=== PATIENT | male | born 1975 | race African-American/Black ===

== ENCOUNTER 2020-05-31 10:44 | Emergency (ER) | payer OTHER ==
[~2020-05-31] VITALS: Ht 175.3 cm; Wt 90.7 kg
[2020-05-31] MEDS ORDERED: KETOROLAC TROMETHAMINE 30 MG/ML VIAL IV STA (11:57)
[2020-05-31] MEDS ORDERED: SODIUM CHLORIDE 0.9% 1000ML 1,000 ML IV SCH (12:00)
[2020-05-31] MEDS ORDERED: SODIUM CHLORIDE 0.9% 500ML 1,000 ML ONE (12:07)
[2020-05-31 12:35] LABS: BASOPHILS % 0.6 % (0.0-1.0); EOSINOPHILS # (AUTO) 0.1 (0.0-0.4); EOSINOPHILS % 1.1 % (0.0-6.0); HEMATOCRIT 39.9 % (38.2-49.6); LYMPHOCYTES # (AUTO) 1.2 (1.0-3.2); LYMPHOCYTES % 21.3 % (18.0-39.1); MEAN CORPUSCULAR HEMOGLOBIN 27.5 pg (28-32); MEAN CORPUSCULAR HGB CONC 32.6 g/dL (31-35); MEAN CORPUSCULAR VOLUME 84.4 fL (81-99); MONOCYTES # (AUTO) 0.9 (0.2-0.8); NEUTROPHILS # (AUTO) 3.3 (2.1-6.9); NEUTROPHILS % 60.4 % (38.7-80.0); PLATELET COUNT 255 x10e3/uL (140-360); RED BLOOD COUNT 4.73 x10e6/uL (4.3-5.7); RED CELL DISTRIBUTION WIDTH 13.3 % (11.7-14.4)
--- NOTE | 2020-05-31 13:00 | NUR ---
[facility] called for transport to CT
--- NOTE | 2020-05-31 14:11 | Emergency Department Note ---
History of Present Illnes History of Present Illness Chief Complaint: Abdominal Complaints History of Present Illness This is a 44 year old male bilateral low back pain. Onset of fever, chills, N, diarrhea (no vomiting), general malaise, generalized muscle aches 6 days ago. Had negative COVID test. Symptoms have improved except for low back pain lingering. Also has mild bilateral lower abd pain. No serious Historian: Patient Arrival Mode: Car Past Medical/Family History Physician Review I have reviewed the patient's past medical and family history. Any updates have been documented here. Past Medical History Recent Fever: Yes Clinical Suspicion of Infectio: No New/Unexplained Change in Ment: No Past Medical History: Hypertension Other Surgery: Left fracture Social History Alcohol Use: Occasional Any Illegal Drug Use: No Physically hurt or threatened: No Other Any Pre-Existing Lines (PICC,: No Review of Systems Review of Systems Constitutional: Reports no symptoms; Denies chills, Denies diaphoresis EENTM: Reports no symptoms Cardiovascular: Reports no symptoms; Denies chest pain, Denies edema, Denies palpitations, Denies syncope Respiratory: Reports no symptoms Gastrointestinal: Reports no symptoms Musculoskeletal: Reports back pain Neurological: Reports no symptoms Endocrine: Reports no symptoms Hematological/Lymphatic: Reports no symptoms; Denies easy bleeding, Denies easy bruising Physical Exam Related Data Allergies: Coded Allergies: No Known Allergies (Unverified , 05/31/20) Triage Vital Signs Vital Signs Date Time Temp Pulse Resp B/P (MAP) Pulse Ox O2 Delivery O2 Flow Rate FiO2 05/31/20 11:02 98.5 84 18 160/89 98 Room Air Physical Exam CONSTITUTIONAL Constitutional: Present well-developed, Present well-nourished HENT HENT: Present normocephalic HENT L/R: Present left ext ear normal, Present right ext ear normal EYES NECK Neck: Present ROM normal PULMONARY Pulmonary: Present effort normal, Present rales CARDIOVASCULAR Cardiovascular: Present regular rhythm, Present irregular rhythm, Present heart sounds normal GASTROINTESTINAL Abdominal: Present soft, Present nontender GENITOURINARY SKIN Skin: Present warm, Present dry; Absent rash MUSCULOSKELETAL Musculoskeletal: Present ROM normal, Present edema; Absent deformity NEUROLOGICAL Neurological: Present alert, Present oriented x 3 PSYCHOLOGICAL Psychological: Present mood/affect normal Results Laboratory Result Diagram: 05/31/20 1200 Laboratory CMP: normal except for K 3.2, CL 97, ALT 70, AST 45 Laboratory Tests Test 05/31/20 12:00 White Blood Count 5.39 x10e3/uL (4.8-10.8) Red Blood Count 4.73 x10e6/uL (4.3-5.7) Hemoglobin 13.0 g/dL (14.0-18.0) Hematocrit 39.9 % (38.2-49.6) Mean Corpuscular Volume 84.4 fL (81-99) Mean Corpuscular Hemoglobin 27.5 pg (28-32) Mean Corpuscular Hemoglobin Concent 32.6 g/dL (31-35) Red Cell Distribution Width 13.3 % (11.7-14.4) Platelet Count 255 x10e3/uL (140-360) Neutrophils (%) (Auto) 60.4 % (38.7-80.0) Lymphocytes (%) (Auto) 21.3 % (18.0-39.1) Monocytes (%) (Auto) 16.0 % (4.4-11.3) Eosinophils (%) (Auto) 1.1 % (0.0-6.0) Basophils (%) (Auto) 0.6 % (0.0-1.0) Neutrophils # (Auto) 3.3 (2.1-6.9) Lymphocytes # (Auto) 1.2 (1.0-3.2) Monocytes # (Auto) 0.9 (0.2-0.8) Eosinophils # (Auto) 0.1 (0.0-0.4) Basophils # (Auto) 0.0 (0.0-0.1) Absolute Immature Granulocyte (auto 0.03 x10e3/uL (0-0.1) Imaging Imaging Comments Procedure: [id number] CT/CT ABDOMEN/PELVIS WO Exam Date: 05/31/20 Exam Time: 1410 REPORT STATUS: Signed EXAM: CT Abdomen and Pelvis WITHOUT intravenous contrast INDICATION: Flank pain COMPARISON: None TECHNIQUE: Abdomen and pelvis were scanned utilizing a multidetector helical scanner from the lung base to the pubic symphysis without administration of IV contrast. Coronal and sagittal reformations were obtained. IV CONTRAST: None ORAL CONTRAST: Water COMPLICATIONS: None RADIATION DOSE: Total DLP: 768 mGy*cm Dose modulation, iterative reconstruction, and/or weight based adjustment of the mA/kV was utilized to reduce the radiation dose to as low as reasonably achievable. FINDINGS: LOWER THORAX: Normal. HEPATOBILIARY: No focal liver lesion. Unremarkable gallbladder. SPLEEN: No splenomegaly. PANCREAS: No focal masses or ductal dilatation. ADRENALS: No adrenal nodules. KIDNEYS/URETERS: No hydronephrosis, stones, or solid mass lesions. PELVIC ORGANS/BLADDER: Unremarkable. PERITONEUM / RETROPERITONEUM: No free air or fluid. LYMPH NODES: No lymphadenopathy. VESSELS: Unremarkable. GI TRACT: Mild diverticulosis. No CT evidence of diverticulitis. Mild wall thickening and pericolonic fat stranding associated with the ascending and proximal transverse colon. BONES AND SOFT TISSUES: Unremarkable. IMPRESSION: Mild pericolic fat stranding and wall thickening associated with the ascending and transverse colon can be seen in the setting of colitis. Mild diverticulosis without CT evidence of diverticulitis. No renal calculi or hydronephrosis. Assessment & Plan Medical Decision Making MDM renal stone, diverticulitis, appendicitis, colitis, viral illness Reassessment Reassessment time: 14:30 Reassessment Await return of CT results and patient from Patient's ER (transferred due to CT down) Assessment & Plan Final Impression: (1) Diverticulosis (2) Colitis (3) Hypokalemia due to excessive gastrointestinal loss of potassium Depart Disposition: HOME, SELF-CARE Last Vital Signs Date Time Temp Pulse Resp B/P (MAP) Pulse Ox O2 Delivery O2 Flow Rate FiO2 05/31/20 11:02 98.5 84 18 160/89 98 Room Air Home Meds Active Scripts Metronidazole (FLAGYL) 500 Mg Tablet, 500 MG PO TID for infection for 10 Days, #30 MG 0 Refills Prov:ULICES VAZ MD 05/31/20 Sulfamethoxazole/Trimethoprim (BACTRIM DS TABLET) 1 Each Tablet, 1 TAB PO BID for infection for 10 Days, #20 TAB Prov:ULICES VAZ MD 05/31/20 Medications in the ED Ketorolac Tromethamine 30 mg ONCE STAT IV Last administered on 05/31/20at 12:00; Admin Dose 30 MG; Start 05/31/20 at 11:57; Stop 05/31/20 at 12:24; Status DC Sodium Chloride 1,000 ml @ 0 mls/hr Q0M IV Last administered on 05/31/20at 12:00; Admin Dose 1,000 MLS/HR; Start 05/31/20 at 12:00; Stop 05/31/20 at 15:00 Sodium Chloride 1,000 ml @ STK-MED ONCE .ROUTE ; Start 05/31/20 at 12:07; Stop 05/31/20 at 12:01; Status DC ULICES VAZ MD May 31, 2020 14:11
--- NOTE | 2020-05-31 14:36 | Diagnostic Imaging Report ---
EXAM: CT Abdomen and Pelvis WITHOUT intravenous contrast INDICATION: Flank pain COMPARISON: None TECHNIQUE: Abdomen and pelvis were scanned utilizing a multidetector helical scanner from the lung base to the pubic symphysis without administration of IV contrast. Coronal and sagittal reformations were obtained. IV CONTRAST: None ORAL CONTRAST: Water COMPLICATIONS: None RADIATION DOSE: Total DLP: 768 mGy*cm Dose modulation, iterative reconstruction, and/or weight based adjustment of the mA/kV was utilized to reduce the radiation dose to as low as reasonably achievable. FINDINGS: LOWER THORAX: Normal. HEPATOBILIARY: No focal liver lesion. Unremarkable gallbladder. SPLEEN: No splenomegaly. PANCREAS: No focal masses or ductal dilatation. ADRENALS: No adrenal nodules. KIDNEYS/URETERS: No hydronephrosis, stones, or solid mass lesions. PELVIC ORGANS/BLADDER: Unremarkable. PERITONEUM / RETROPERITONEUM: No free air or fluid. LYMPH NODES: No lymphadenopathy. VESSELS: Unremarkable. GI TRACT: Mild diverticulosis. No CT evidence of diverticulitis. Mild wall thickening and pericolonic fat stranding associated with the ascending and proximal transverse colon. BONES AND SOFT TISSUES: Unremarkable. IMPRESSION: Mild pericolic fat stranding and wall thickening associated with the ascending and transverse colon can be seen in the setting of colitis. Mild diverticulosis without CT evidence of diverticulitis. No renal calculi or hydronephrosis. Signed by: Rhonda Vargas MD on 05/31/2020 2:33 PM
[2020-05-31] MEDS ORDERED: BACTRIM DS TAB1 EACH PO (15:11)
[2020-05-31] MEDS ORDERED: FLAGYL500 MG PO (15:12)
[2020-05-31 15:56] VITALS: BP 155/90
== END 2020-05-31 15:45 | disposition home or self-care (01) ==
LOC: FSED 11:45
DX: K57.90 Diverticulosis of intestine, part unspecified, without perforation or abscess without bleeding (principal); K52.9 Noninfective gastroenteritis and colitis, unspecified; E87.6 Hypokalemia; R10.9 Unspecified abdominal pain; I10 Essential (primary) hypertension
CPT/HCPCS: 36415; 74176; 80053; 81003; 85025; 96374; 99284; J1885; J7040